=== PATIENT | female | born 1970 | race Caucasian/White ===

== ENCOUNTER 2019-11-29 14:03 | Outpatient (CLI) | payer BC, SELFPAY ==
--- NOTE | 2019-11-29 14:10 | MM_ITS ---
WS: [id number] SCREENING DIGITAL MAMMOGRAM WITH CAD HISTORY: SCREENING COMPARISON: 12/13/2015 and 10/30/2012 Bilateral CC and MLO views submitted. Computer aided detection analyzed. Breast composition: There are scattered areas of fibroglandular density. There is a new area of spicu lation in the RIGHT breast near the 1:00 axis posteriorly. This area measures about 5 mm. There are 2 new areas of increased density and spiculation in the mid medial LEFT breast. These appear to be wit hin the inferior medial quadrant or at the 9:00 axis. RIGHT breast: Spot compression views (CC and MLO). True ML. Ultrasound to follow if abnormality persi sts. LEFT breast: Spot compression views (CC and MLO). True ML. Ultrasound to follow if abnormality persis ts. MM/[place] [id number] IMPRESSION: BI-RADS: 0-Incomplete: Need additional imaging evaluation FOLLOW UP: Need Additional Imaging
== END 2019-11-29 14:04 | disposition home or self-care (01) ==
PROVIDERS: Family Provider Electrodiagnostic Medicine; PCP Electrodiagnostic Medicine; Visit Provider Nurse Practitioner Women's Health
DX: Z12.31 Encounter for screening mammogram for malignant neoplasm of breast (principal)
CPT/HCPCS: 77067

== ENCOUNTER 2019-12-09 09:44 | Outpatient (CLI) | payer BC, SELFPAY ==
--- NOTE | 2019-12-09 09:50 | MM_ITS ---
WS: [id number] Bilateral diagnostic digital mammogram, 12/09/2019 Clinical Data: HEATH BREAST MASS Comparison: 11/29/2019, 12/13/2015, 10/30/2012. Findings: The compression spot films of the right breast in the CC and MLO projections were obtained. There is a medial lateral right breast image performed. The density in the posterior right breast at the 1:00 region is not seen on current exam. This area probably represents asymmetric breast tissue. Compression spot films of the left breast in the CC and ML projections along with a left mediolateral view were obtained. Of the 2 densities in the midportion of the left breast in the central and media l aspects are not as well-defined on the compression views. These areas are probably asymmetric breas [place] tissue. MM/[place] [id number] Impression: 1. Probable asymmetric breast tissue in both the right and left breasts. 2. Bilateral breast ultrasound will be performed. BIRADS: 2-Benign FOLLOW UP: See Report The CAD construction checker was used.
--- NOTE | 2019-12-09 09:50 | US_ITS ---
WS: [id number] Bilateral breast ultrasound, 12/09/2019 Clinical Data: HEATH BREAST MASS Comparison: None. Findings: The right breast was scanned at the 1 and 2:00 levels. No cysts or masses could be seen. There is onl y normal breast tissue. Left breast was scanned at the 10 and 1:00 positions and there were cysts at each level. At 10:00 the re is a small cyst measuring 0.3 x 0.3 x 0.4 cm, and at the 12:00 position the cyst measured 0.2 x 0. 3 x 0.3 cm. No masses were seen. Only normal breast tissue is seen. US/US breast BI limited* [id number] Impression: 1. Normal right breast. 2. Small left breast cysts. 3. Recommend annual screening mammogram. BIRADS: 2-Benign FOLLOW UP: 1 Year Follow-up
== END 2019-12-09 09:45 | disposition home or self-care (01) ==
LOC: RADSHAW 09:47
PROVIDERS: Family Provider Electrodiagnostic Medicine; PCP Electrodiagnostic Medicine; Visit Provider Electrodiagnostic Medicine
DX: N63.12 Unspecified lump in the right breast, upper inner quadrant (principal); N63.20 Unspecified lump in the left breast, unspecified quadrant
CPT/HCPCS: 76642; 77066

== ENCOUNTER 2021-03-05 04:14 | Observation (INO) | payer BC, SELFPAY ==
[2021-03-05] VITALS (8 sets, daily range): BP systolic 134–162; BP diastolic 81–97; PULSE 51–64; RESP 14–25; TEMP 36.4–36.8; O2SAT 98–100; BMI 30.1
--- NOTE | 2021-03-05 04:23 | CTR_ITS ---
PROCEDURE INFORMATION: Exam: CT Head Without Contrast Exam date and time: 03/05/2021 4:23 AM Age: 51 years old Clinical indication: Dizziness; Additional info: Vertigo TECHNIQUE: Imaging protocol: Computed tomography of the head without contrast. Radiation optimization: All CT scans at this facility use at least one of these dose optimization techniques: automated exposure control; mA and/or kV adjustment per patient size (includes targeted exams where dose is matched to clinical indication); or iterative reconstruction. COMPARISON: No relevant prior studies available. RADIATION DOSE METRICS: Total DLP (mGy-cm): 902.47 FINDINGS: Brain: Normal. No hemorrhage. Unremarkable white matter. No mass effect. Cerebral ventricles: No ventriculomegaly. Paranasal sinuses: Fluid and mucosal thickening is seen within the ethmoidal and maxillary sinuses. Mastoid air cells: Visualized mastoid air cells are well aerated. Bones/joints: Unremarkable. No acute fracture. Soft tissues: Unremarkable. CT/CT head wo con* [id number] IMPRESSION: There are no acute intracranial findings. Radiation Dose CTDIVOL = (mGy): DLP = 902.47 (mGy-cm)
[2021-03-05] MEDS: sodium chloride 0.9% 1,000 ML 999 ML IV (04:30)
[2021-03-05] MEDS: ondansetron 2 mg/ML SDV 2 mL 4 MG IVP ×3 (04:31→20:24)
[2021-03-05] MEDS: meclizine 25 mg tablet 50 MG PO (04:32)
--- NOTE | 2021-03-05 04:33 | W.ED.NAVMDI ---
HPI - Nausea/Vomiting/Diarrhea General: Chief complaint: Nausea/Vomiting/Diarrhea Stated complaint: N/V Time Seen by Provider: 03/05/21 04:15 Source: patient and EMS Mode of arrival: EMS Limitations: no limitations History of Present Illness: HPI Narrative: 51-year-old female states that starting at 9 she started having severe vertigo along with nausea and vomiting. She states with any movement she gets severely dizzy and nauseous. She states she is having difficulty walking due to this. She states it is improved if she does not move her head at all. She denies any head injuries. Denies any headache. Denies any fevers. Associated nausea: Yes Associated symtoms: Reports nausea; Denies chest pain or dysuria Review of Systems Const: Denies: fever(s), chills, body aches or change in appetite Eyes: Denies: blurry vision or eye discomfort ENMT: Denies: throat pain or dental pain Card: Denies: chest pain Resp: Denies: dyspnea GI: Reports: nausea and vomiting : Denies: dysuria Musc: Denies: neck pain or back pain Skin/Breast: Denies: rash Neuro: Reports: vertigo Psych: Denies: depression Chester/Lymph: Denies: easy bruising All/Imm: Denies: urticaria PFSH ED PFSH: Medical History (Updated 03/07/21 @ 00:01 by ) Anxiety Depression GERD (gastroesophageal reflux disease) Hiatal hernia Hypertension Migraine Seasonal allergies Surgical History (Updated 03/05/21 @ 11:28 by Carlyle Love MD) History of repair of hiatal hernia History of surgery involving uterine cervix, antepartum History of uterine ablation Family History Unknown Cancer Social History (Updated 03/05/21 @ 11:28 by Carlyle Love MD) Smoking and tobacco status: former smoker Alcohol intake: current Alcohol intake frequency: holidays/special occasions only History of recent travel: No Physical Exam Const: COMMON NORMALS: no acute distress, patient oriented x3 and healthy appearing HENMT: COMMON NORMALS: normocephalic and atraumatic HEAD & SCALP: normocephalic and atraumatic Eye: COMMON NORMALS: Equal, round and reactive pupils present and EOMs intact bilaterally PUPIL: Yes Equal, round and reactive pupils present Neck/C-Spine: COMMON NORMALS: full ROM and supple Chest: COMMONS NORMALS: normal inspection of the chest and normal palpation of entire chest wall Resp: COMMON NORMALS: normal respiratory effort, No retractions, No use of accessory muscles and clear to auscultation bilaterally AUSCULTATION: clear to auscultation bilaterally Cardio: COMMON NORMALS: regular rate, regular rhythm and No murmurs present (Cardio) RATE: regular rate RHYTHM: regular rhythm GI: COMMON NORMALS: Normal to inspection, nondistended, normoactive bowel sounds present, Soft to palpation, non-tender and no masses PALPATION: Yes Soft to palpation Extremity: COMMON NORMALS: normal to inspection and full ROM Neuro: COMMON NORMALS: patient oriented x3, moves all extremities and no focal motor deficits SPEECH: speech normal GAIT: Yes Ataxic gait present MOTOR EXAM: 5/5 motor strength present throughout OTHER: resting horizontal nystagmus Psych: COMMON NORMALS: mental status grossly normal, Normal thought process present and cooperative THOUGHT PROCESS: Normal thought process present Skin: COMMON NORMALS: no rashes or lesions noted and no wounds GENERAL SKIN EXAM: no rashes or lesions noted Course Vital Signs: Vital signs: Vital Signs Temperature 98.6 F 03/06/21 11:26 Pulse Rate 52 L 03/06/21 11:26 Respiratory Rate 20 H 03/06/21 11:26 Blood Pressure 161/89 03/06/21 11:26 Pulse Oximetry 98 03/06/21 11:26 MDM - Nausea/Vomiting/Diarrhea MDM Narrative: Medical decision making narrative: Patient presents with vertigo along with vomiting. Patient does have some severe horizontal nystagmus and I believe this is likely an inner ear peripheral cause of her vertigo. CT scan here was normal. She is not able to tolerate p.o. and has severe vertigo with any minimal movement. Spoke to hospitalist will admit for observation at this time. Patient has been stable on the ER. Lab Data: Labs: Lab Results 03/05/21 03/05/21 03/05/21 Range/Units 04:23 05:14 05:14 WBC 7.3 (4.0-10.0) 10^3/ uL RBC 4.27 (4.1-5.3) 10^6/u L Hgb 13.5 (11.5-15.3) g/dL Hct 40.9 (37.0-47.0) % MCV 95.8 (81-99) fL MCH 31.6 (28.0-34.0) pg MCHC 33.0 (30.0-36.0) g/dL RDW 11.8 L (12.1-15.1) % Plt Count 267 (130-400) 10^3/c mm MPV 10.4 (7.4-10.4) fL Neut % (Auto) 76.9 % Lymph % (Auto) 17.9 % [place] % (Auto) 4.1 % Eos % (Auto) 0.4 % Baso % (Auto) 0.4 % Neut # (Auto) 5.64 (1.8-7.7) 10^3/u L Lymph # (Auto) 1.3 (0.8-4.8) 10^3/u L [place] # (Auto) 0.3 (0.2-0.9) 10^3/u L Eos # (Auto) 0.0 (0.0-0.8) 10^3/u L Baso # (Auto) 0.0 (0.0-0.1) 10^3/u L Nucleated RBC % (a uto) 0 % Nucleated RBCs # 0.0 /100WBC Sodium 136 (136-145) mmol/L Potassium 3.9 (3.5-5.1) mmol/L Chloride 100 (98-107) mmol/L Carbon Dioxide 21 L (22-29) mmol/L Anion Gap 18.9 (5-19) BUN 13 (6-20) mg/dL Creatinine 0.7 (0.5-0.9) mg/dL GFR Calculation 87.9 L (90-130) mL/min Glucose 192 H (65-115) mg/dL Estimat Average Gl ucose 103 Hemoglobin A1c 5.2 (4.0-6.0) % Calculated Osmolal ity 287 (285-295) mOsm/k g Calcium 9.0 (8.5-10.5) mg/dL Magnesium (1.7-2.3) mg/dL Total Bilirubin 0.5 (0.15-1.2) mg/dL AST 17 (0-32) U/L ALT 18 (0-33) U/L Alkaline Phosphata se 102 (35-105) IU/L Total Protein 7.2 (6.6-8.7) g/dL Albumin 4.4 (3.5-5.2) g/dL Globulin 2.8 (1.3-4.6) g/dL Lipase 11 L (13-60) U/L TSH (0.27-4.20) uIU/ mL 03/05/21 Range/Units 05:14 WBC (4.0-10.0) 10^3/ uL RBC (4.1-5.3) 10^6/u L Hgb (11.5-15.3) g/dL Hct (37.0-47.0) % MCV (81-99) fL MCH (28.0-34.0) pg MCHC (30.0-36.0) g/dL RDW (12.1-15.1) % Plt Count (130-400) 10^3/c mm MPV (7.4-10.4) fL Neut % (Auto) % Lymph % (Auto) % [place] % (Auto) % Eos % (Auto) % Baso % (Auto) % Neut # (Auto) (1.8-7.7) 10^3/u L Lymph # (Auto) (0.8-4.8) 10^3/u L [place] # (Auto) (0.2-0.9) 10^3/u L Eos # (Auto) (0.0-0.8) 10^3/u L Baso # (Auto) (0.0-0.1) 10^3/u L Nucleated RBC % (a uto) % Nucleated RBCs # /100WBC Sodium (136-145) mmol/L Potassium (3.5-5.1) mmol/L Chloride (98-107) mmol/L Carbon Dioxide (22-29) mmol/L Anion Gap (5-19) BUN (6-20) mg/dL Creatinine (0.5-0.9) mg/dL GFR Calculation (90-130) mL/min Glucose (65-115) mg/dL Estimat Average Gl ucose Hemoglobin A1c (4.0-6.0) % Calculated Osmolal ity (285-295) mOsm/k g Calcium (8.5-10.5) mg/dL Magnesium 1.8 (1.7-2.3) mg/dL Total Bilirubin (0.15-1.2) mg/dL AST (0-32) U/L ALT (0-33) U/L Alkaline Phosphata se (35-105) IU/L Total Protein (6.6-8.7) g/dL Albumin (3.5-5.2) g/dL Globulin (1.3-4.6) g/dL Lipase (13-60) U/L TSH 2.02 (0.27-4.20) uIU/ mL Imaging Data^: CT Head: Attestation: I personally reviewed and interpreted this imaging study as follows: Radiologist's impression: [address] [address] [address] Scan Report Signed Patient: Jolynn De Jesus Unit #: [id number] : 1970 Age/Sex: 51 / F ADM Date: 03/05/21 Loc: ER Room/Bed: Attending Dr: Ordering Provider/Ordering MD: Brandon Roche MD Date of Service: 03/05/21 Procedure(s): CT head wo con* [id number] Accession Number(s): [id number] Report Number: [id number] PROCEDURE INFORMATION: Exam: CT Head Without Contrast Exam date and time: 03/05/2021 4:23 AM Age: 51 years old Clinical indication: Dizziness; Additional info: Vertigo TECHNIQUE: Imaging protocol: Computed tomography of the head without contrast. Radiation optimization: All CT scans at this facility use at least one of these dose optimization techniques: automated exposure control; mA and/or kV adjustment per patient size (includes targeted exams where dose is matched to clinical indication); or iterative reconstruction. COMPARISON: No relevant prior studies available. RADIATION DOSE METRICS: Total DLP (mGy-cm): 902.47 FINDINGS: Brain: Normal. No hemorrhage. Unremarkable white matter. No mass effect. Cerebral ventricles: No ventriculomegaly. Paranasal sinuses: Fluid and mucosal thickening is seen within the ethmoidal and maxillary sinuses. Mastoid air cells: Visualized mastoid air cells are well aerated. Bones/joints: Unremarkable. No acute fracture. Soft tissues: Unremarkable. CT/CT head wo con* [id number] IMPRESSION: There are no acute intracranial findings. Discharge Plan Discharge Patient Disposition: Admitted As Inpatient Admit Provider: Sheree Sharif Clinical Impression: Vertigo, Vomiting Condition: Stable Discharge Diet: Cardiac Discharge Activity: Increase activity as tolerated Coding Level of Care Code ED Contract Design Agent for Chg Fwd Exam Comprehensive
[2021-03-05 05:07] LABS: Basophils % 0.4 %; Eosinophils % 0.4 %; Hematocrit 40.9 % (37.0-47.0); Hemoglobin 13.5 g/dL (11.5-15.3); Lymphocytes # 1.3 10^3/uL (0.8-4.8); Lymphocytes % 17.9 %; Mean Corpuscular Hemoglobin 31.6 pg (28.0-34.0); Mean Corpuscular Volume 95.8 fL (81-99); Mean Platelet Volume 10.4 fL (7.4-10.4); Monocytes # 0.3 10^3/uL (0.2-0.9); Monocytes % 4.1 %; Neutrophils # 5.64 10^3/uL (1.8-7.7); Neutrophils % 76.9 %; Nucleated Red Blood Cells % 0 %; Platelet Count 267 10^3/cmm (130-400); Red Blood Count 4.27 10^6/uL (4.1-5.3); Red Cell Distribution Width 11.8 % (12.1-15.1); White Blood Count 7.3 10^3/uL (4.0-10.0)
[2021-03-05] MEDS: LORazepam 2 mg/mL INJ 1 mL 1 MG IVP (05:33)
[2021-03-05 05:46] LABS: Alanine Aminotransferase 18 U/L (0-33); Albumin Level 4.4 g/dL (3.5-5.2); Alkaline Phosphatase 102 IU/L (35-105); Anion Gap 18.9 (5-19); Aspartate Amino Transferase 17 U/L (0-32); Blood Urea Nitrogen 13 mg/dL (6-20); Carbon Dioxide 21 mmol/L (22-29); Chloride 100 mmol/L (98-107); Globulin 2.8 g/dL (1.3-4.6); Glomerular Filtration Rate 87.9 mL/min (90-130); Glucose 192 mg/dL (65-115); Lipase 11 U/L (13-60); Osmolality Calculated 287 mOsm/kg (285-295); Potassium 3.9 mmol/L (3.5-5.1); Sodium 136 mmol/L (136-145); Total Bilirubin 0.5 mg/dL (0.15-1.2); Total Protein 7.2 g/dL (6.6-8.7)
--- NOTE | 2021-03-05 08:09 | MR_ITS ---
WS: [id number] MRI HEAD WITHOUT CONTRAST TECHNIQUE: Sagittal T1, T2 axial, T2 axial FLAIR, axial and coronal T1 images, axial susceptibility w eighted imaging, axial diffusion weighted images, and coronal T2 images were obtained. CLINICAL INFORMATION: mr head COMPARISON: CT March 05, 2021 FINDINGS: No evidence of restricted diffusion to suggest acute ischemia. Ventricular system and basal cisterns are patent. Mild to moderate supratentorial T2 hyperintense lesions in the periventricular and subcor tical white matter. Normal posterior fossa. Normal vascular flow voids at the skull base. No extra-ax ial fluid collections. No evidence of mass or mass effect. Mild mucosal thickening in the paranasal sinuses. Small amount of fluid in the maxillary sinuses. Mas toid air cells are well aerated. Normal posterior fossa. Tiny focus of hemosiderin in the right thalamus. Normal optic chiasm and pituitary infundibulum. Temp oral lobes and hippocampal formations are normal in appearance. MR/MR head wo con* [id number] IMPRESSION: Some images degraded by patient motion. 1. No evidence of restricted diffusion to suggest acute ischemia. 2. Mild to moderate supratentorial periventricular white matter changes nonspe cific in a patient this age but can be seen with hypertension, diabetes, collag en vascular disease, and demyelinating disease. Recommend correlation with clin ical history. 3. Normal corpus callosum. 4. Tiny focus of hemosiderin in the right thalamus. 5. Temporal lobes and hippocampal formations are normal in appearance.
--- NOTE | 2021-03-05 08:14 | PM.HP ---
Providers/Chief Complaint Admitting Physician: Sheree Sharif MD Primary Care Provider: Brijesh Leija DO Chief Complaint: N/V History of Present Illness Jolynn De Jesus is a 51 year old female Who presented to the emergency department with complaints of dizziness, nausea and vomiting. She states she has had a little bit of nasal congestion the last several days and then yesterday evening became very dizzy. No history of trauma. She has a history of migraine headaches but does not have a headache currently. She reports when she closes her eyes and extends better. She has difficulty walking with recurrent dizziness. She reports no history of Covid, vaccination for Covid, or contacts with Covid. She denies any past history of stroke. Review of Systems General: Reports: 10 or more systems reviewed and unremarkable except in HPI and below Const: Denies: fever(s) or chills Eyes: Denies: change in vision ENMT: Reports: nasal congestion; Denies: throat pain Card: Denies: chest pain Resp: Denies: dyspnea GI: Reports: nausea and vomiting; Denies: abdominal pain : Denies: flank pain Musc: Denies: neck pain Skin/Breast: Denies: rash Neuro: Denies: headache(s) Psych: Denies: anxiety or depression Endo: Denies: polyuria Chester/Lymph: Denies: easy bruising All/Imm: Denies: urticaria Medications/Allergies Home Medications Medication Instructions Recorded Confirmed Last Taken Type conj estrogen-medroxyprogesterone 1 tab PO DAILY #28 tab 04/25/20 03/05/21 03/04/21 Rx 0.625 mg-2.5 mg tablet alprazolam 0.5 mg tablet 0.5 mg PO BEDTIME PRN 07/24/20 03/05/21 03/04/21 History paroxetine HCl 40 mg tablet 40 mg PO QAM 07/24/20 03/05/21 03/04/21 History Fiber Gummies 2 tab PO DAILY 03/05/21 03/05/21 Unknown History hisyyeqzux-qdhaupzlunycf-hbqv 1 - 2 tab PO Q4H PRN MDD 6 tabs 03/05/21 03/05/21 03/04/21 16:00 History 2 tabs cetirizine [Zyrtec] 10 mg PO QAM 03/05/21 03/05/2103/04/21 History cholecalciferol (vitamin D3) 50,000 unit PO Q7D 03/05/21 03/05/21 Unknown History esomeprazole magnesium [Nexium 20 mg PO QAM 03/05/21 03/05/21 03/04/21 History 24HR] fluticasone propionate [Flonase] 2 spray INTRANASAL DAILY 03/05/21 03/05/21 Unknown History ibuprofen 400 mg PO PRN 03/05/21 03/05/21 Unknown History metoprolol tartrate [Lopressor] 50 mg PO BID 03/05/21 03/05/21 03/04/21 History multivit with min-folic acid 1 tab PO DAILY 03/05/21 03/05/21 Unknown History [Adult Multivitamin Gummies] Allergies Allergy/AdvReac Type Severity Reaction Status Date / Time Penicillins Allergy Intermediate rash Verified 03/05/21 08:36 Sulfa (Sulfonamide Allergy Intermediate hives Verified 03/05/21 08:36 Antibiotics) ketorolac [From Toradol] AdvReac itching Verified 03/05/21 08:36 prescription NSAIDS Allergy Unknown Uncoded 03/05/21 04:19 PFSH Acute PFSH: Medical History (Updated 03/05/21 @ 11:39 by Carlyle Love MD) Anxiety Depression GERD (gastroesophageal reflux disease) Hiatal hernia Hypertension Migraine Seasonal allergies Surgical History (Updated 03/05/21 @ 11:28 by Carlyle Love MD) History of repair of hiatal hernia History of surgery involving uterine cervix, antepartum History of uterine ablation Family History Unknown Cancer Social History (Updated 03/05/21 @ 11:28 by Carlyle Love MD) Smoking and tobacco status: former smoker Alcohol intake: current Alcohol intake frequency: holidays/special occasions only History of recent travel: No Vitals/I&O/Wt Last Vital Signs Temp 98.3 F 03/05/21 06:50 Pulse 64 03/05/21 06:50 Resp 22 H 03/05/21 06:50 BP 140/93 03/05/21 06:50 Pulse Ox 99 03/05/21 06:50 Weight last 48 hrs Weight 89.811 kg Physical Exam Narrative: EXAM NARRATIVE: General exam is a white female, no obvious distress Neurologic: No exam abnormalities with the exception of horizontal nystagmus. HEENT: See above. Atraumatic normocephalic. Oropharynx clear. Neck is supple no lymphadenopathy or thyromegaly Cardiovascular regular rate and rhythm without murmur, no S3 or S4 Lungs clear to auscultation bilaterally. No wheezing or crackles Abdomen is soft with positive bowel sounds. No obvious organomegaly was deferred Extremities no cyanosis clubbing or edema, cap refill brisk Data : 03/05/21 04:23 03/05/21 05:14 Other data: LFTs are within normal limits, lipase 11, TSH 2, magnesium normal, calcium normal, hemoglobin A1c normal A&P Assessment and plan (1) Vertigo: Severe vertigo, causing dizziness, inability to walk, horizontal nystagmus, vomiting with inability to hydrate. Observation Secondary to acute onset and above presentation could not rule out cerebellar CVA. Therefore an MRI was performed this morning. This did not demonstrate CVA, and showed only some periventricular white matter disease. Secondary to recent nasal congestion/viral symptoms will give 100 mg of Solu-Medrol IV now, and reevaluate tomorrow. Physical therapy consultation Nausea control Hydration Status: Acute (2) Hypertension: Continue patient's home medications Status: Acute (3) GERD (gastroesophageal reflux disease): Continue patient's home medications Status: Acute (4) Depression: Continue Paxil. Status: Acute Additional A&P Information Full code Lovenox for DVT prophylaxis Attestations Medical Necessity Statement*: Will need less than 2 midnight stay for evaluation and treatment of severe vertigo, likely secondary to acute vestibular neuritis Time Spent in Patient Care: Greater than 35 minutes Coding Level of Care Code Acute Card Table Attendant for g Fwd Diagnoses Vertigo R42 Hypertension I10 GERD (gastroesophageal reflux disease) K21.9 Depression F32.9
[2021-03-05 08:25] LABS: Magnesium 1.8 mg/dL (1.7-2.3); Thyroid Stimulating Hormone 2.02 uIU/mL (0.27-4.20)
[2021-03-05 09:03] LABS: Estmated Average Glucose 103; Hemoglobin A1C 5.2 % (4.0-6.0)
[2021-03-05] MEDS: enoxaparin 40 mg/0.4 mL Syringe SUBCUT (10:05)
[2021-03-05] MEDS: sodium chloride 0.9% 1,000 ML 100 ML IV ×2 (10:05→18:24)
[2021-03-05] MEDS: metoprolol tartrate 50 mg Tablet PO (20:23)
[2021-03-05] MEDS: ALPRAZolam 0.5 mg Tablet PO (20:43)
[2021-03-06 01:42] VITALS: PULSE 61
[2021-03-06 03:01] VITALS: BP 149/84; PULSE 67; RESP 17; TEMP 36.6; O2SAT 94
[2021-03-06] MEDS: PARoxetine 20 mg Tablet 40 MG PO (05:02)
[2021-03-06] MEDS: sodium chloride 0.9% 1,000 ML 100 ML IV (05:03)
[2021-03-06] MEDS: pantoprazole DR 40 mg Tablet PO (05:03)
[2021-03-06 05:32] LABS: Basophils % 0.1 %; Hematocrit 38.2 % (37.0-47.0); Hemoglobin 12.8 g/dL (11.5-15.3); Lymphocytes # 1.4 10^3/uL (0.8-4.8); Lymphocytes % 11.7 %; Mean Corpuscular HGB Conc 33.5 g/dL (30.0-36.0); Mean Corpuscular Hemoglobin 31.7 pg (28.0-34.0); Mean Corpuscular Volume 94.6 fL (81-99); Mean Platelet Volume 10.3 fL (7.4-10.4); Monocytes # 0.6 10^3/uL (0.2-0.9); Monocytes % 5.2 %; Neutrophils # 9.75 10^3/uL (1.8-7.7); Neutrophils % 82.4 %; Nucleated Red Blood Cells % 0 %; Platelet Count 245 10^3/cmm (130-400); Red Blood Count 4.04 10^6/uL (4.1-5.3); Red Cell Distribution Width 11.9 % (12.1-15.1); White Blood Count 11.8 10^3/uL (4.0-10.0)
[2021-03-06 05:58] LABS: Alanine Aminotransferase 16 U/L (0-33); Albumin Level 3.8 g/dL (3.5-5.2); Alkaline Phosphatase 82 IU/L (35-105); Anion Gap 13.7 (5-19); Aspartate Amino Transferase 15 U/L (0-32); Blood Urea Nitrogen 12 mg/dL (6-20); Calcium 7.9 mg/dL (8.5-10.5); Carbon Dioxide 26 mmol/L (22-29); Chloride 105 mmol/L (98-107); Globulin 2.6 g/dL (1.3-4.6); Glomerular Filtration Rate 87.9 mL/min (90-130); Glucose 112 mg/dL (65-115); Osmolality Calculated 293 mOsm/kg (285-295); Potassium 3.7 mmol/L (3.5-5.1); Sodium 141 mmol/L (136-145); Total Bilirubin 0.4 mg/dL (0.15-1.2); Total Protein 6.4 g/dL (6.6-8.7)
[2021-03-06 06:00] VITALS: PULSE 61
[2021-03-06 07:04] VITALS: BP 132/74; PULSE 63; RESP 23; TEMP 36.7; O2SAT 98
[2021-03-06] MEDS: metoprolol tartrate 50 mg Tablet PO (08:04)
[2021-03-06] MEDS: enoxaparin 40 mg/0.4 mL Syringe SUBCUT (08:04)
[2021-03-06] MEDS: ondansetron 2 mg/ML SDV 2 mL 4 MG IVP (08:42)
--- NOTE | 2021-03-06 09:45 | PC.CHAP ---
Pastoral Care Encounter/Spiritual Assessment Type of Contact [] Declined software solutions architect visit [] Patient/Family/Request visit [] Outpatient visit [] Follow-up visit [] Physician referral [] Code/Alert [x] Routine visit [] Staff referral [] Actively dying [] Patient sleeping [] Family support [] [] Out of room [] Palliative care [] [x] Receiving care in room [] Pre-surgical visit [] Trauma [] Long length of stay [] ICU visit [] Other: Relational/Emotional Strength [] Patient feels connected with others/family/visitors/staff [] Distress [] Loneliness/isolation [] Abandonment Spirituality of Patient [] Person of Fanta [] Attends Faith of their Fanta [] Believes in Prayer [] Reads Bible or Faith materials [] There are Spiritual issues to be addressed Intelligence Group Supervisor Interventions [x] Prayer [] Active listening [] Non-anxious presence [] Spiritual/emotional support [] Crisis/trauma care [] Spiritual counseling [] Bereavement support [] Provided bereavement packet [] Provided Bible/devotional materials [] Provided toy/stuffed animal, coloring book to patient or family member [] Provided Communion [] Anointing/[place] [] Salvation [x] Completed spiritual assessment [] Other: Impact on Illness or Injury [] Angry [] Fearful [] Anxious [] Often cries [] Exhaustion [] Unable to work [] Unable to attend synagogue [] Unable to walk/stand [] Unable to read [] Unable to drive [] Unable to eat/drink [] Unable to sleep [] Unable to be with family [] Patient intubated [] Other: Summary Time spent with patient
[2021-03-06 10:43] VITALS: BP 161/89; PULSE 52; RESP 20; TEMP 37; O2SAT 98
--- NOTE | 2021-03-06 11:07 | PM.DCS ---
Discharge Providers Date of Admission: 03/05/21 06:14 Date of Discharge: March 06, 2021 Attending Provider at Admission: Sheree Sharif MD Attending Provider at Discharge: Carlyle Love MD Primary Care Provider: Brijesh Leija DO Diagnoses at Discharge Discharge Diagnosis (1) Vertigo: Status: Acute (2) Hypertension: Status: Acute (3) GERD (gastroesophageal reflux disease): Status: Acute (4) Depression: Status: Acute Reason for Visit Reason for Visit: N/V 29652 R42 Hospital Course Hospital Course Jolynn is a 51-year-old white female who presented through the emergency department with complaints of dizziness, and nausea. She had had some nasal congestions for several days prior to arrival. She did not have a headache. While in the emergency department there was concern regarding her ability to keep hydrated, and her severe vertigo. She was placed on an observation status in the hospital and rehydrated. Nausea control with Zofran, and further evaluation of her vertigo with MRI was performed. This demonstrated some nonspecific changes in the white matter supratentorially but no CVA. CT scan done in the emergency department showed no acute changes. She did have horizontal nystagmus on exam. Her vertigo was thought to be secondary to inner ear difficulties such as vestibular neuritis/labyrinthitis. BPPV was thought less likely. Physical therapy worked with her both days, and on March 06 her nystagmus was much improved. She still had some dizziness but it was greatly improved from the previous day. Considering this it was thought she could transition home with close follow-up with her primary care provider. She was told not to drive until released by her primary care provider. Physical Exam Narrative: EXAM NARRATIVE: General exam no apparent distress Cardiovascular regular rate and rhythm without murmur Lungs clear Abdomen is soft, positive bowel sounds Extremities no cyanosis clubbing or edema Neuro no focal deficits. Horizontal nystagmus greatly improved. Discharge Data Data Completed and Pending: Completed Studies During Hospitalization Category Date Time Status CT head wo con* 7 0450 Urgent Cat Scan 03/05/21 04:23 Completed MR head wo con* 7 0551 Urgent MRI 03/05/21 08:09 Completed Labs from last 24 hours 03/06/21 03/06/21 04:26 04:26 WBC 11.8 H RBC 4.04 L Hgb 12.8 Hct 38.2 MCV 94.6 MCH 31.7 MCHC 33.5 RDW 11.9 L Plt Count 245 MPV 10.3 Neut % (Auto) 82.4 Lymph % (Auto) 11.7 [place] % (Auto) 5.2 Eos % (Auto) 0.0 Baso % (Auto) 0.1 Neut # (Auto) 9.75 H Lymph # (Auto) 1.4 [place] # (Auto) 0.6 Eos # (Auto) 0.0 Baso # (Auto) 0.0 Nucleated RBC % (a uto) 0 Nucleated RBCs # 0.0 Sodium 141 Potassium 3.7 Chloride 105 Carbon Dioxide 26 Anion Gap 13.7 BUN 12 Creatinine 0.7 GFR Calculation 87.9 L Glucose 112 Calculated Osmolal ity 293 Calcium 7.9 L Total Bilirubin 0.4 AST 15 ALT 16 Alkaline Phosphata se 82 Total Protein 6.4 L Albumin 3.8 Globulin 2.6 Vitals: Last Vital Signs Temp 98.6 F 03/06/21 10:43 Pulse 52 L 03/06/21 10:43 Resp 20 H 03/06/21 10:43 BP 161/89 03/06/21 10:43 Pulse Ox 98 03/06/21 10:43 Discharge Plan Discharge Patient Disposition: Home Condition: Stable Prescriptions: New ondansetron HCl [Zofran] 4 mg tablet 4 mg PO Q8H PRN (Reason: nausea and vomiting) 4 Days Qty: 10 RF: 0 meclizine 12.5 mg tablet 12.5 mg PO QID PRN (Reason: dizziness) Qty: 20 RF: 0 prednisone 20 mg tablet 40 mg PO DAILY 5 Days Qty: 10 RF: 0 Continued paroxetine HCl [Paxil] 40 mg tablet 40 mg PO QAM RF: 0 alprazolam [Xanax] 0.5 mg tablet 0.5 mg PO BEDTIME PRN (Reason: Anxiety) RF: 0 Prempro 0.625-2.5 mg tablet 1 tab PO DAILY Qty: 28 RF: 0 metoprolol tartrate [Lopressor] 50 mg tablet 50 mg PO BID RF: 0 Zyrtec 10 mg Tablet 10 mg PO QAM RF: 0 ujqyqtdyyb-ucfncvlifmvuc-dfry 50-325-40 mg tablet 1 - 2 tab PO Q4H MDD 6 tabs PRN (Reason: Migraine Headache) RF: 0 Flonase 50 mcg/actuation [place],Suspension 2 spray INTRANASAL DAILY RF: 0 Nexium 24HR 20 mg Capsule,Delayed Release(Dr/Ec) 20 mg PO QAM RF: 0 cholecalciferol (vitamin D3) 1,250 mcg (50,000 unit) capsule 50,000 unit PO Q7D RF: 0 Adult Multivitamin Gummies 200 mcg Tablet,Chewable 1 tab PO DAILY RF: 0 Fiber Gummies 2 tab PO DAILY RF: 0 Discontinued ibuprofen 200 mg Tablet 400 mg PO PRN RF: 0 Discharge Orders: Discharge Order (Routine); Ordered 03/06/21 Ordered By: Carlyle Love Referrals: Brijesh Leija DO [Primary Care Provider] - 4-7 days Discharge Diet: Cardiac Discharge Activity: Increase activity as tolerated Patient Instructions: Opioid Safety Activity Restrictions/Additional Instructions: No driving until cleared by your primary care provider Fall precautions Take all medicine as prescribed Return for any concerns. Discharge Attestations Time Spent in Discharge Care*: greater than 30 min Quality Metrics Clinical Quality Measures During this hospital stay, did patient experience: None Coding Level of Care Code Acute Chg FW [place] note Diagnoses Vertigo R42 Hypertension I10 GERD (gastroesophageal reflux disease) K21.9 Depression F32.9
[2021-03-06 11:26] VITALS: BP 161/89; PULSE 52; RESP 20; TEMP 37; O2SAT 98
--- NOTE | 2021-03-06 13:55 | PC.NURSE ---
Patient education was provided regarding medications, follow up appointments, and discharge diagnosis. Patient had no questions or concerns. IV removed and was intact, pt tolerated well. VS stable upon departure, home medications sent home with patient along with all other belongings, pt wheeled to ER exit and left with spouse.
== END 2021-03-06 13:40 | disposition home or self-care (01) ==
LOC: ER 05:49 → CSU 06:33
PROVIDERS: Admitting Provider Hospitalist; Emergency Provider Emergency Medicine; PCP Electrodiagnostic Medicine; Visit Provider Internal Medicine
DX: R42 Dizziness and giddiness (principal); I10 Essential (primary) hypertension; K21.9 Gastro-esophageal reflux disease without esophagitis; F32.9 Major depressive disorder, single episode, unspecified; F41.9 Anxiety disorder, unspecified; Z87.891 Personal history of nicotine dependence
CPT/HCPCS: 36415; 70450; 70551; 80053; 83036; 83690; 83735; 84443; 85025; 96361; 96372; 96374; 96375; 96376; 97161; 97530; 99285; G0378; J1650; J2060; J2405; J2930; J7030; J8597

== ENCOUNTER → 2021-03-07 16:44 | Outpatient (BNVA) | payer BC, SELFPAY | PROVIDERS: PCP Electrodiagnostic Medicine; Visit Provider Emergency Medicine | DX: Z20.822 Contact with and (suspected) exposure to COVID-19 (principal) | CPT/HCPCS: 87635 ==

== ENCOUNTER → 2021-08-03 12:50 | Outpatient (BNVA) | payer BC, SELFPAY | PROVIDERS: PCP Electrodiagnostic Medicine; Visit Provider Nurse Practitioner Family | DX: Z20.822 Contact with and (suspected) exposure to COVID-19 (principal) | CPT/HCPCS: 87635 ==

== ENCOUNTER 2022-02-07 12:48 | Outpatient (CLI) | payer BC, SELFPAY ==
--- NOTE | 2022-02-07 13:02 | MM_ITS ---
WS: [id number] Bilateral screening 3D tomosynthesis digital mammogram, 02/07/2022 Clinical Data: SCREENING Comparison: 12/09/2019, 11/29/2019, 12/13/2015, 10/30/2012. Findings: The breast parenchymal pattern shows bilateral glandular tissue No spiculated masses or clustered brianda cifications are seen. There are no secondary signs of carcinoma. MM/[place] [id number] Impression: 1. Negative bilateral mammogram unchanged. 2. Recommend annual screening mammograms. BIRADS: 1-Negative FOLLOW UP: 1 Year Follow-up The CAD stock checker was used.
== END 2022-02-07 12:49 | disposition home or self-care (01) ==
LOC: RAD 12:50
PROVIDERS: PCP Electrodiagnostic Medicine; Visit Provider Electrodiagnostic Medicine
DX: Z12.31 Encounter for screening mammogram for malignant neoplasm of breast (principal)
CPT/HCPCS: 77063; 77067